=== PATIENT | female | born 1990 | race Caucasian/White ===

== ENCOUNTER 2018-02-24 09:28 | Emergency (ER) | payer BC, OTHER ==
[2018-02-24 09:37] VITALS: TEMP 98.3; BMI 29.3
--- NOTE | 2018-02-24 09:50 | PDOC ---
History of Present Illness - History of Present Illness Initial Comments: The patient is a 27 year old female who is A0, 10 weeks , with no other significant PMHx, and presents with lower cramping abdominal pain this morning before work. She describes it as a band-like pain,crampy, rates 6/10, does not radiate. She states that the pain became unbearable and she had to leave work. She denies taking any medications for the pain. She does not know what she can safely take. She reports feeling nauseous and general malaise yesterday and states she was in bed all day. She states that this pain feels similar to her period but worse. 12/16/17- LMP. She states that she has her first appt. tomorrow at [facility]. Denies any vaginal bleeding or dysuria. Denies any vomiting, headache diarrhea , rectal bleeding. No h/o STD's. No recent hospitalizations. Denies h/o surgeries. <Cammy Alston - Last Filed: 02/24/18 12:02> <Erendira Patel - Last Filed: 02/24/18 12:37> - General Chief Complaint: Pain Stated Complaint: PAIN (10 WKS ) Time Seen by Provider: 02/24/18 09:50 Past History <Cammy Alston - Last Filed: 02/24/18 12:02> - Past Medical History COPD: No - Suicide/Smoking/Psychosocial Hx Smoking History: Never smoked Have you smoked in the past 12 months: No Information on smoking cessation initiated: No Hx Alcohol Use: No Drug/Substance Use Hx: No Substance Use Type: None <Erendira Patel - Last Filed: 02/24/18 12:37> - Past Medical History Allergies/Adverse Reactions: Allergies Allergy/AdvReac Type Severity Reaction Status Date / Time No Known Allergies Allergy Verified 02/24/18 09:34 Home Medications: Ambulatory Orders Cephalexin Monohydrate [Keflex -] 500 mg PO BID #10 capsule 02/24/18 Review of Systems - Review of Systems Comments:: GENERAL/CONSTITUTIONAL: No: fever, chills, weakness, loss of appetite. HEAD, EYES, EARS, NOSE AND THROAT: No: change in vision, ear pain, discharge, sore throat, throat swelling. CARDIOVASCULAR: No: chest pain, lightheadedness, palpitations, syncope RESPIRATORY: No: cough, shortness of breath, wheezing, hemoptysis, stridor. GASTROINTESTINAL: +abdominal cramping . No: nausea, vomiting, diarrhea, rectal bleeding, constipation. GENITOURINARY: No: dysuria, hematuria, frequency, urgency, flank pain. MUSCULOSKELETAL: No: back pain, neck pain, joint pain, muscle swelling or pain SKIN: No: lesions, pallor, rash or easy bruising. NEUROLOGIC: No: headache, vertigo, paresthesias, weakness ENDOCRINE: No: unexplained weight gain or loss HEMATOLOGIC/LYMPHATIC: No: anemia, easy bleeding, swelling nodes <Cammy Alston - Last Filed: 02/24/18 12:02> *Physical Exam - Vital Signs Last Vital Signs Temp Pulse Resp BP Pulse Ox 98.3 F 79 18 121/66 100 02/24/18 09:35 02/24/18 09:35 02/24/18 09:35 02/24/18 09:35 02/24/18 09:35 - Physical Exam Comments: GENERAL: The patient is in no acute distress. HEAD: Normal with no signs of trauma. EYES: PERRLA, EOMI, sclera anicteric, conjunctiva clear. LUNGS: Breath sounds equal, clear to auscultation bilaterally. No wheezes, and no crackles. HEART:Regular rate and rhythm, normal S1 and S2 without murmur, rub or gallop. ABDOMEN: Suprapubic tenderness to palpation, normoactive bowel sounds. No guarding, no rebound. EXTREMITIES: Normal range of motion, no edema. No clubbing or cyanosis. No erythema, or tenderness. NEUROLOGICAL: Cranial nerves II through XII grossly intact. Normal speech. No focal neurological deficits. MUSCULOSKELETAL: Back nontender to palpation, no CVA tenderness SKIN: Warm, Dry, normal turgor, no rashes or lesions noted. <Cammy Alston - Last Filed: 02/24/18 12:02> - Vital Signs Last Vital Signs Temp Pulse Resp BP Pulse Ox 98.3 F 79 18 121/66 100 02/24/18 09:35 02/24/18 09:35 02/24/18 09:35 02/24/18 09:35 02/24/18 09:35 <Erendira Patel - Last Filed: 02/24/18 12:37> ED Treatment Course - LABORATORY CBC & Chemistry Diagram: 02/24/18 09:50 02/24/18 09:50 - ADDITIONAL ORDERS Additional order review: 02/24/18 09:50 RBC 4.60 MCV 90.0 MCHC 33.9 RDW 13.6 MPV 10.4 Neutrophils % 71.2 Lymphocytes % 22.9 Monocytes % 4.9 Eosinophils % 0.2 Basophils % 0.8 - RADIOLOGY Radiograph Interpretation: Transvaginal US Impression: Single, live intrauterine of 11 weeks 1 day gestational age. Reported By: Gonzalo Blankenship MD 02/24/18 1155 <Cammy Alston - Last Filed: 02/24/18 12:02> - LABORATORY CBC & Chemistry Diagram: 02/24/18 09:50 02/24/18 09:50 <Erendira Patel - Last Filed: 02/24/18 12:37> Medical Decision Making - Medical Decision Making 02/24/18 10:54 27 yo approximately 10 weeks p/w lower abdominal pain which began this morning Band like pain on the lower abdomen No dysuria No fevers or chills Laboratory Tests 02/24/18 02/24/18 09:50 10:18 WBC 8.0 Hgb 14.1 Hct 41.4 Plt Count 222 Urine Appearance Cloudy Urine pH 6.0 Ur Specific [place] 1.021 Ur Leukocyte Esterase 3+ H 02/24/18 11:12 Laboratory Tests 02/24/18 02/24/18 09:50 10:18 Sodium 138 Potassium 4.2 Chloride 106 Carbon Dioxide 24 BUN 4 L Random Glucose 79 Urine WBC (Auto) 15 Urine RBC (Auto) 2 Ur Epithelial Cells Moderate Urine Bacteria Rare Urine Mucus Moderate Received call from the lab, pt will need re type Will order 02/24/18 12:01 Laboratory Tests 02/24/18 09:50 Beta HCG, Quant [id number] 02/24/18 12:01 Laboratory Tests 02/24/18 09:50 Blood Type O POSITIVE 02/24/18 12:15 Will discharge to home Clinical impression: UTI, initial presentation Abdominal pain in , initial presentation <Erendira Patel - Last Filed: 02/24/18 12:37> *DC/Admit/Observation/Transfer - Attestations Scribe Attestion: 02/24/18 10:42 Documentation prepared by Cammy Alston, acting as certified medical transcriptionist for Erendira Patel MD. <Cammy Alston - Last Filed: 02/24/18 12:02> - Discharge Dispostion Decision to Admit order: No <Erendira Patel - Last Filed: 02/24/18 12:37> Diagnosis at time of Disposition: Abdominal pain affecting UTI (urinary tract infection) Qualifiers: Urinary tract infection type: site unspecified Hematuria presence: without hematuria Qualified Code(s): N39.0 - Urinary tract infection, site not specified - Discharge Dispostion Disposition: HOME Condition at time of disposition: Stable - Patient Instructions Printed Discharge Instructions: DI for Abdominal Pain -- Early , DI for Urinary Tract Infection (UTI) Additional Instructions: Ms Real, Thank you for coming to the ER today You can take tylenol for pain Please return to the ER for severe pain, vaginal bleeding, increased abdominal pain - Post Discharge Activity Forms/Work/School Notes: Back to Work
[2018-02-24 10:22] LABS: BASO % 0.8 % (0-2.0); EOS % 0.2 % (0-4.5); HEMATOCRIT 41.4 % (32.4-45.2); HEMOGLOBIN 14.1 GM/dL (10.7-15.3); LYMPH % 22.9 % (8-40); MCH 30.5 pg (25.7-33.7); MCHC 33.9 g/dl (32.0-36.0); MEAN PLT VOLUME 10.4 fl (7.5-11.1); MONO % 4.9 % (3.8-10.2); NEUT % 71.2 % (42.8-82.8); PLATELET COUNT 222 K/MM3 (134-434); RDW 13.6 % (11.6-15.6)
[2018-02-24 10:29] LABS: URINE APPEARANCE CLOUDY; URINE BILIRUBIN NEGATIVE (<2.0 mg/dL); URINE COLOR YELLOW; URINE GLUCOSE (UA) NEGATIVE (NEGATIVE); URINE KETONE NEGATIVE (NEGATIVE); URINE NITRITE NEGATIVE (NEGATIVE); URINE PROTEIN NEGATIVE (NEGATIVE); URINE UROBILINOGEN NEGATIVE mg/dL (0.2-1.0)
[2018-02-24] MEDS ORDERED: ACETAMINOPHEN 325 MG TABLET (FP) PO ONE (10:33)
[2018-02-24 10:49] LABS: URINE LEUK ESTERASE 3+ (NEGATIVE)
[2018-02-24 10:54] LABS: EPI CELLS MODERATE /HPF (FEW); URINE BACTERIA RARE /hpf (NONE SEEN); URINE MUCUS MODERATE
[2018-02-24 10:54] LABS: ALBUMIN 3.8 g/dl (3.4-5.0); ANION GAP 8 MMOL/L (8-16); BLOOD UREA NITROGEN 4 mg/dL (7-18); CALCIUM 9.5 mg/dL (8.5-10.1); CHLORIDE 106 mmol/L (98-107); CO2 24 mmol/L (21-32); GLUCOSE,RANDOM 79 mg/dL (74-106); POTASSIUM 4.2 mmol/L (3.5-5.1); SODIUM 138 mmol/L (136-145)
[2018-02-24 11:16] LABS: ALK PHOS 56 U/L (45-117); BILIRUBIN,TOTAL 0.3 mg/dL (0.2-1.0); CREATININE 0.4 mg/dL (0.55-1.02); SGOT/AST 13 U/L (15-37); SGPT/ALT 16 U/L (12-78); TOT PROT 7.5 g/dl (6.4-8.2)
[2018-02-24 13:10] VITALS: BP 101/61; PULSE 77
== END 2018-02-24 13:09 | disposition home or self-care (01) ==
LOC: JER 09:28
DX: O26.891 Other specified pregnancy related conditions, first trimester (principal); O23.41 Unspecified infection of urinary tract in pregnancy, first trimester; Z3A.11 11 weeks gestation of pregnancy
CPT/HCPCS: 36415; 76817-TC; 80053; 81003; 81015; 84702; 85025; 86850; 86900; 86901; 87086; 99283-25